=== PATIENT | male | born 1955 | race African-American/Black ===

== ENCOUNTER → 2021-03-14 | Outpatient (CLI) | payer BC ==
--- NOTE | 2021-03-14 16:22 | KCIC ---
EXAM: MRI left KNEE DATE: 03/14/2021 10:15 AM CLINICAL INDICATION: Reason: LEFT KNEE MENISCUS TEAR / Spl. Instructions: / History: Lateral left kn ee pain for one month. Some pain posteriorly. NKI. COMPARISON: None. TECHNIQUE: Multiplanar, multisequence MRI of the left knee was performed without contrast. FINDINGS: Moderate knee joint effusion. Mildly prominent suprapatellar plica. No Carmen's cyst. ACL and PCL are intact. Mild increased signal about the MCL likely low-grade sprain. Fibular collateral ligament, biceps femo ris and IT band are intact. Popliteus tendon is intact, normal in signal and morphology. Medial meniscus: Partial-thickness radial tear at the posterior horn medial meniscus. Lateral meniscus: Intact Articular cartilage is grossly preserved. No fracture or osteonecrosis. Extensor mechanism is intact. Neutral patellar tracking. Mild suprapatellar fat pad edema IMPRESSION: 1. Partial-thickness radial tear posterior horn medial meniscus 2. Mild suprapatellar fat pad edema may be seen with anterior knee pain/impingement. 3. Moderate knee joint effusion. Electronically signed by: Rodney Toth MD (03/14/2021 4:20 PM) [place]
== END ==
LOC: KCIC MRI 10:02
PROVIDERS: ATTEND Physician Assistant
DX: S83.242A Other tear of medial meniscus, current injury, left knee, initial encounter (principal); S83.282A Other tear of lateral meniscus, current injury, left knee, initial encounter; M79.4 Hypertrophy of (infrapatellar) fat pad; M25.462 Effusion, left knee; X58.XXXA Exposure to other specified factors, initial encounter; Y93.89 Activity, other specified; Y92.89 Other specified places as the place of occurrence of the external cause; Y99.8 Other external cause status
CPT/HCPCS: 73721